=== PATIENT | male | born 1985 | race Caucasian/White ===

== ENCOUNTER 2021-09-26 12:00 | Outpatient (CLI) | payer OTHER, SELFPAY | END 2021-09-26 12:01 | disposition home or self-care (01) | LOC: SLEEP 09-27 11:27 | PROVIDERS: PCP Family Medicine; Visit Provider Family Medicine | DX: G47.10 Hypersomnia, unspecified (principal); R06.83 Snoring; R53.83 Other fatigue | CPT/HCPCS: G0399 ==